=== PATIENT | female | born 1980 | race Caucasian/White ===

== ENCOUNTER → 2020-06-01 09:18 | Outpatient (CLI) | payer OTHER, SELFPAY ==
--- NOTE | 2020-06-01 09:57 | BI_ITS ---
MAMMOGRAPHY - BILATERAL SCREENING REASON FOR EXAM: Female, 40 years old. Routine annual screening examination. PERTINENT HISTORY: Grandmother with breast cancer. Aunt with breast cancer. Bilateral breast implants. TECHNIQUE: Digital bilateral breast carol (3D mammographic acquisition) in the CC and MLO projections. 2-D mediolateral oblique (MLO) and craniocaudad (CC) views of both breasts were obtained. CAD: Full Field Digital Mammography with Computer Added Detection was performed. COMPARISON: Comparison is made with prior study dated 05/02/2017. FINDINGS: Breast Composition: The breasts are extremely dense, which lowers the sensitivity of mammography. There are no dominant masses or suspicious calcifications. There is a 1 cm well-defined nodule in the axillary region of the right breast as seen on the MLO view. Correlation with ultrasound is recommended. No other significant abnormalities are identified. BI/SCREEN MAMM (CAD) W/CAROL BILAT IMPRESSION: 1 cm well-defined nodule in the axillary region of the right breast as described. Correlation with ultrasound is recommended. ASSESSMENT CATEGORY: BIRADS Category 0: Incomplete. Need additional imaging evaluation. A letter regarding these results will be sent to the patient by the facility within 30 days. Approximately 10% of breast cancers are not detected by mammography. A normal mammogram should not delay biopsy of a clinically suspicious abnormality. [id number] Electronically Signed: Miquel Polanco, at 10:52 EST , Service support ,
[2020-06-01 10:09] LABS: ALB/GLOB Ratio 1.3 RATIO (0.9-2.4); AST(SGOT) 17 U/L (15-37); Alanine Aminotransfer ALT/SGPT 21 U/L (13-56); Albumin, Serum 4.1 g/dL (3.2-5.0); Alkaline Phosphatase 59 U/L (45-117); BUN 11 mg/dL (7-18); BUN/Creat Ratio 13.3 RATIO (10-20); Calcium,Total 8.8 mg/dL (8.5-10.1); Chloride 106 mmol/L (98-107); Cholesterol 216 mg/dL (200); Creatinine, Serum 0.83 mg/dL (0.55-1.02); EST Glomerular Filtration Rate 81 mL/min (>60); Est Glom Filt Rate - Afr Amer 98 mL/min (>60); Globulin 3.1 g/dL (2.2-4.2); Glucose 82 mg/dL (74-106); Potassium 3.8 mmol/L (3.5-5.1); Protein, Total 7.2 g/dL (6.4-8.2); Sodium Level 139 mmol/L (136-145); Triglycerides 46 mg/dL
[2020-06-01 10:10] LABS: Anion Gap 3 (5-15); High Density Lipoprotein 94 mg/dL; Very Low Density Lipoprotein 9 mg/dL (5-40)
== END ==
PROVIDERS: PCP Family Medicine; Referring Provider Family Medicine; Visit Provider Family Medicine
DX: Z12.31 Encounter for screening mammogram for malignant neoplasm of breast (principal); N63.10 Unspecified lump in the right breast, unspecified quadrant; Z13.1 Encounter for screening for diabetes mellitus; Z13.220 Encounter for screening for lipoid disorders
CPT/HCPCS: 36415; 77063; 77067; 80053; 80061

== ENCOUNTER → 2020-06-02 10:16 | Outpatient (CLI) | payer OTHER, SELFPAY ==
--- NOTE | 2020-06-02 10:54 | US_ITS ---
STUDY: ULTRASOUND BREAST - RIGHT REASON FOR EXAM: Female, 40 years old. Abnormal screening mammogram. TECHNIQUE: Axial and longitudinal images of the RIGHT breast were performed with a high resolution ultrasound transducer. # OF IMAGES: 38 COMPARISON: Comparison is made with prior mammogram dated 06/01/2020. FINDINGS: RIGHT Breast: The upper half of the right breast was examined by ultrasound. No sonographic abnormality is seen. There is evidence of a breast implant. US/Breast Limited Unilateral IMPRESSION: No sonographic abnormality is seen. Additional mammographic views will be obtained. ASSESSMENT CATEGORY: BIRADS Category 0: Incomplete. Need additional imaging evaluation. A letter regarding these results will be sent to the patient by the facility within 30 days. Electronically Signed: Miquel Polanco, at 11:59 EST , Service support ,
--- NOTE | 2020-06-02 11:17 | BI_ITS ---
MAMMOGRAPHY - UNILATERAL DIAGNOSTIC: RIGHT BREAST REASON FOR EXAM: Female, 40 years old. Abnormal screening mammogram. PERTINENT HISTORY: Grandmother with breast cancer. TECHNIQUE: Compression spot views of the right were obtained in the MLO and craniocaudad projections. CAD: Full Field Digital Mammography with Computer Added Detection was performed. COMPARISON: Comparison is made with prior mammogram dated 06/01/2020 and prior ultrasound of the right breast dated 06/02/2020. FINDINGS: Breast Composition: The breasts are extremely dense, which lowers the sensitivity of mammography. The previously seen questionable axillary nodule is not seen at the time and most likely represents superimposition of breast tissue. No other significant abnormalities are identified. BI/DIAG MAMM W/CAD, UNILAT IMPRESSION: Stable unilateral diagnostic mammogram. One year follow-up mammogram recommended. (A) ASSESSMENT CATEGORY: BIRADS Category 2: Benign. A letter regarding these results will be sent to the patient by the facility within 30 days. Approximately 10% of breast cancers are not detected by mammography. A normal mammogram should not delay biopsy of a clinically suspicious abnormality. Electronically Signed: Miquel Polanco, at 13:44 EST , Service support ,
== END ==
PROVIDERS: PCP Family Medicine; Referring Provider Family Medicine; Visit Provider Family Medicine
DX: R92.8 Other abnormal and inconclusive findings on diagnostic imaging of breast (principal)
CPT/HCPCS: 76642; 77065

== ENCOUNTER → 2020-06-20 | Outpatient (CLI) | payer OTHER, SELFPAY ==
--- NOTE | 2020-06-20 | IMM_PTH ---
PATIENT: CHAY MUSTAFA LOC: [facility] U#:[id number] AGE/SX: 40/F ROOM: RE06/20/[address]: Dr. Harry Collier MD : 1980 BED: DIS: 06/20/2020 SPEC #: [id number] RECD: 06/21/20 12:55 STATUS: AUDREY REQ #: [id number] CAROLYN: 06/20/20 00:[address]: Harry Collier DEPT: IMMUNOHISTOCHEMISTRY RECD BY: Sylvia Arredondo ENTERED: 06/21/20 12:56 SP TYPE: IMMUNO OTHR DR: Beronica Hebert PA-C Tissues: A - Uterine cervix, NOS B - Endocervical Procedures: p16 (initial) KI-67 (add) PHYSICIAN & INSTITUTION [facility] [id number] SPECIMEN INFORMATION: Tissue Source: A - Cervix, B - Endocervix Clinical Info: ASCUS, ? HGSIL Specimen Number: [id number] A & B CPT code: 53288 x2, 53443 x2 METHODOLOGY: Deparaffinized sections of prefer/formalin-fixed tissue or PAP/DQ stained slides are incubated with monoclonal/polyclonal antibodies/oligonucleotide probes. Localization is made via biotin free immunoperoxidase method. Appropriate controls are performed and reacted as expected. Results on target cell population are indicated in the following table: RESULTS: ANTIBODY / CLONE RESULT Block A P16 (E6H4) positive, focal, patchy Ki-67 (30-9) positive, moderate Block B P16 (E6H4) positive, focal, patchy Ki-67 (30-9) negative These tests were developed and their performance characteristics determined by [facility]. They may not have been cleared or approved by the U.S. Food and Drug Administration. The FDA has determined that such clearance or approval is not necessary. The above immunohistochemical/dualISH markers are ordered and reviewed by the Pathologist. INTERPRETATION: A. Cervix, biopsy: Consistent with focal HPV change/mild squamous dysplasia. B. Endocervix, curettings: Consistent with focal HPV change/mild squamous dysplasia. AM:jerman 06/22/20
--- NOTE | 2020-06-20 10:00 | CER_PTH ---
PATIENT: CHAY MUSTAFA LOC: [facility] U#:[id number] AGE/SX: 40/F ROOM: RE06/20/[address]: Dr. Harry Collier MD : 1980 BED: DIS: 06/20/2020 SPEC #: [id number] RECD: 06/20/20 11:34 STATUS: AUDREY REMarija #: [id number] CAROLYN: 06/20/20 10:[address]: Harry Collier DEPT: SURGICAL PATHOLOGY RECD BY: Nicky Jules ENTERED: 06/20/20 12:53 SP TYPE: CERV OTHR DR: Beronica Hebert PA-C Tissues: A - Uterine cervix, NOS B - Endocervical Procedures: Surgery Specimen Level IV HEADER OPERATION: Colposcopy PRE-OP DIAGNOSIS: ASCUS; cannot rule out HGSIL TISSUE SUBMITTED: A - Cervical biopsy, B - ECC MICROSCOPIC DIAGNOSIS A. Cervix, biopsy: Focal mild squamous dysplasia (LSIL). See comment. B. Endocervix, curettings: Focal mild squamous dysplasia (LSIL). Scant strips of benign superficial endocervix. See comment. AM:jerman 06/21/20 COMMENT A & B. Results from immunohistochemistry ([id number]) for surrogate HPV marker (p16) will be reported separately. Case has been reviewed in consultation with Dr. Mustafa who concurs with the above diagnosis. IDC:SJ MICROSCOPIC DESCRIPTION Slides are reviewed. GROSS DESCRIPTION A - Received in fixative is one container labeled with the patient's name and designated cervical. The specimen consists of multiple irregular fragments of light murphy soft tissue that in aggregate measure 1 x 0.5 x 0.1 cm. The specimen is totally submitted in one cassette. B - Received in fixative is one container labeled with the patient's name and designated endocervical. The specimen consists of multiple minute fragments of light murphy soft tissue that in aggregate measure 2 x 1 x <0.1 cm. The specimen is totally submitted in one cassette. / AM:jerman 06/20/20 TC:0 CPT: 76286 x2
== END | disposition home or self-care (01) ==
LOC: LABSPEC 10:55
PROVIDERS: PCP Family Medicine; Visit Provider Obstetrics & Gynecology
DX: R87.610 Atypical squamous cells of undetermined significance on cytologic smear of cervix (ASC-US) (principal)
CPT/HCPCS: 88305; 88341; 88342

== ENCOUNTER 2020-08-17 08:05 | Day surgery (SDC) | payer OTHER, SELFPAY ==
--- NOTE | 2020-08-16 21:27 | PCM.HPOB.BLA ---
History and Physical Surgical History and Physical Name: LARISA MUSTAFA Age: 40 Date of : 1980 Larisa Mustafa, a 40 year old female 3 0 0 0 3, presents for LEEP on August 17, 2020 at 9:15. -- Larisa is here as a referral from Soha Hebert for ASCUS pap, cannot rule out HGSIL, +HPV. She has prior ASCUS pap and Colpo with she believes to be LGSIL result. She is having LEEP. MEDICATIONS HISTORY: ALLERGIES: No Known Drug Allergies Infections - Chicken pox and shingles Illnesses - none Accidents - no injuries of consequence Hospitalizations - see surgery Review of Systems: GENERAL - Denies fever, or chills SKIN - Denies skin changes EYES - Denies visual changes EARS - Denies difficulty hearing NOSE - Denies nasal congestion or bleeding MOUTH - Denies sore throat or difficulty swallowing NECK - Denies pain or swelling RESPIRATORY - Denies shortness of breath or wheezing CARDIOVASCULAR - Denies palpitations or chest pain GASTROINTESTINAL - Denies nausea, vomiting, diarrhea, constipation GENITOURINARY - Denies dysuria, frequency of urination, incontinence of urine MUSCULOSKELETAL - Denies joint or muscle pain NEUROLOGICAL - Denies localized numbness or weakness PSYCHIATRIC - Denies depression or anxiety ENDOCRINE - Denies heat or cold intolerance, weight loss or gain HEMATO-IMMUNOLOGIC - Denies excessive bleeding with cuts SOCIAL HISTORY: Alcohol Use - socially Smoking - denies smoking Diet - no special diet Lifestyle - moderate stress lifestyle and Exercise - regular 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 Description - [employer] Illicit Drug Use - denies use of street drugs Sexual Activity - Hours Worked - 15 Spouse-Sig Other Name - Singh Spouse-Sig Other Occupation - Self- as above Children Name(s) - Asuncion Brianne Obie Control - Vasectomy FAMILY HISTORY: MENSTRUAL HISTORY: LMP Known?- Approximate-Month KnownAmount/Duration - 5 days, Regularity - Regular, LMP - 07/17/20, Age Onset Menarche - 13 PAST PREGNANCIES: Total Pregnancies - 3; Full Term Pregnancies - 3; Premature - 0; Abortions, Induced - 0; Abortions, Spontaneous - 0; Ectopics - 0; Multiple Births - 0; Living Children - 3 SURGICAL HISTORY: 2009 Breast Augmentation ; - PHYSICAL EXAM BP- 94/58 Sitting, Right arm, regular cuff Temp- 98.4 Taken Orally Weight- 120.68443 lbs Height- 66.6 inch BMI:19.06 CONSTITUTIONAL - NAD, well nourished, and well developed SKIN - No rash, lesions, or ulcers HEENT - Normocephalic, PERRLA, EOMI NECK - No nodes, no nuchal rigidity and thyroid normal size and texture LYMPH NODES - Palpation of lymph nodes in neck and groins within normal limits LUNGS - CTA x2 without wheezes, crackles or rales CARDIAC - Regular rate and rhythm without rubs, murmurs, or gallops ABDOMEN - Without hepatosplenomegaly, distention, masses, rebound, or guarding; normal bowel sounds; no hernias EXTREMITIES - No edema or calf tenderness NEUROLOGICAL - Cranial nerves II-XII grossly intact PSYCHIATRIC - A and O to time, place, person, mood and affect External Genital Vagina - non-tender without lesions Urethra/Urethral Meatus - non-tender Bladder - non-tender Vagina - vaginal booker are pink and moist without loss of rugae and no evidence of atrophy Cervix - without cervical motion tenderness and has normal size and features without evident lesions Uterus - 5-6 cm in size, mobile and nontender Adnexa - clear without masses or tenderness ASSESSMENT/PLAN: 1. Mild Cervical Dysplasia Pt referral from [facility]. ASCUS Cannot rule out high grade, HPV pos. Pt with hx of ASCUS but never HPV pos Educated on results including extensive conversation about HPV. Suggest vaccination pt undecided but seems likely to decline Colposcopy with PEDRO I, ECC with PEDRO I For LEEP procedure Educated pt on procedure r/b/a. All questions answered and consent was signed Educated on HPV, physical activity, hot tubs
[2020-08-17] VITALS (8 sets, daily range): BP systolic 101–114; BP diastolic 66–79; PULSE 53–72; RESP 14–16; TEMP 36.1–37.3; O2SAT 100; BMI 19.2
--- NOTE | 2020-08-17 | IMM_PTH ---
PATIENT: CHAY MUSTAFA [place] [facility] [place][id number] AGE/SX: 40/F ROOM: RE08/17/[address]: Dr. Harry Collier MD : 1980 BED: DIS: 08/17/2020 SPEC #: [id number] RECD: 08/21/20 12:29 STATUS: AUDREY REQ #: [id number] CAROLYN: 08/17/20 00:[address]: Harry Collier DEPT: IMMUNOHISTOCHEMISTRY RECD BY: Sylvia Arredondo ENTERED: 08/21/20 12:30 SP TYPE: IMMUNO OTHR DR: Beronica Hebert PA-C Tissues: A - Uterine cervix, NOS Procedures: p16 (initial) KI-67 (add) PHYSICIAN & INSTITUTION [place] [id number] SPECIMEN INFORMATION: Tissue Source: A - Ectocervix Clinical Info: Mild cervical dysplasia Specimen Number: [id number] CPT code: 57935, 51386 METHODOLOGY: Deparaffinized sections of prefer/formalin-fixed tissue or PAP/DQ stained slides are incubated with monoclonal/polyclonal antibodies/oligonucleotide probes. Localization is made via biotin free immunoperoxidase method. Appropriate controls are performed and reacted as expected. Results on target cell population are indicated in the following table: RESULTS: ANTIBODY / CLONE RESULT Block A P16 (E6H4) positive, focal block staining Ki-67 (30-9) positive, moderate These tests were developed and their performance characteristics determined by [facility]. They may not have been cleared or approved by the U.S. Food and Drug Administration. The FDA has determined that such clearance or approval is not necessary. The above immunohistochemical/dualISH markers are ordered and reviewed by the Pathologist. INTERPRETATION: A. Ectocervix: Focal moderate squamous dysplasia. SKY:jerman 08/22/2020
[2020-08-17 08:39] LABS: Internal QC Validated? YES +Cl - CLEAR BKGD; Pregnancy, Urine Negative Negative
--- NOTE | 2020-08-17 09:30 | CONE_PTH ---
PATIENT: CHAY MUSTAFA [place]: [facility] [place][id number] AGE/SX: 40/F ROOM: RE08/17/[address]: Dr. Harry Collier MD : 1980 BED: DIS: 08/17/2020 SPEC #: [id number] RECD: 08/17/20 12:25 STATUS: AUDREY JETT #: [id number] CAROLYN: 08/17/20 09:[address]: Harry Collier DEPT: SURGICAL PATHOLOGY RECD BY: Yomaira Brown ENTERED: 08/18/20 11:54 SP TYPE: Leep Cone BHASKAR DR: Beronica Hebert PA-C Tissues: A - UTERINE CERVIX LEEP B - UTERINE CERVIX LEEP Procedures: Surgery Specimen Level V HEADER OPERATION: LEEP cone PRE-OP DIAGNOSIS: Mild cervical dysplasia TISSUE SUBMITTED: A - Ectocervix, B - Endocervix MICROSCOPIC DIAGNOSIS A. 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 Mild chronic inflammation. See comment. B. Endocervix, LEEP conization: Acute and chronic inflammation. Negative for dysplasia. SJ:rg 08/21/2020 COMMENT A. Dysplastic changes are noted in the detached fragment of the epithelium. Inked resection margins of all three fragments are free of dysplastic changes. Immunohistochemistry ([id number]) for surrogate HPV marker (p16) supports the above diagnosis. Please make reference to previous specimen ([id number]) Cervix, biopsy and endocervix, curettings with diagnosis of focal mild squamous dysplasia. MICROSCOPIC DESCRIPTION Slides are reviewed. GROSS DESCRIPTION A - Received in fixative is one container labeled with the patient's name and designated ectocervix. The specimen consists of three irregular fragments of pink-murphy soft tissue ranging in size from 0.8 to 2.5 cm. No distinct mass lesions are identified. The fragments are inked, serially sectioned and totally submitted in three cassettes. B - Received in fixative is one container labeled with the patient's name and designated endocervix. The specimen consists of multiple irregular fragments of pink-murphy soft tissue measuring in aggregate 1.5 x 1 x 0.2 cm. The specimen is totally submitted in one cassette. / KELECHI:jerman 08/18/20 TC:5 CPT: 14637 x2
--- NOTE | 2020-08-17 10:39 | OP.PCM_ITS ---
Report of Operation Date of Procedure: 08/17/20 Pre-Operative Diagnosis: ASCUS cannot rule out high-grade, PEDRO-1 Post-Operative Diagnosis: ASCUS cannot rule out high-grade, PEDRO-1 Surgery/Procedure Performed:: Conization LEEP Description of Surgical Findings:: Surgeon: Harry Collier MD Anesthesia: MAC EBL: 25 cc Urine output: Not measured IV fluids: 600 cc Complications: None Specimen: Ectocervix and endocervix Findings: Lugol's solution applied to ectocervix. No new pathology found. Loop electrosurgical excision procedure performed on ectocervix. Endocervical sampling with LEEP done separately. Sturmdorf sutures and Monsel's were queenie lied. Good hemostasis noted. Consent: Patient with ASCUS cannot rule out high-grade and PEDRO-1 on colposcopy of endocervix and ectocervix. Patient need a LEEP procedure. Patient understands the risk of the procedure include but are not limited to visceral vascular injury, prolonged hospitalization, blood loss need for transfusion, reoperation. Patient states understanding wish to proceed. All questions consent was signed. Seizure: Patient was brought back to the OR where MAC anesthesia was found be adequate. Patient was prepared and draped in dorsolithotomy position with yellowfin stirr ups. Weighted speculum is placed in the posterior aspect of vagina and above findings were noted with Lugol's solution. Using cauterized LEEP ectocervical sampling was performed. Repeat sampling of endocervix with LEEP electrocautery was performed. Sample sent separately. Using rollerball and Sturmdorf suture good hemostasis was noted. Monsel's was placed. Good hemostasis was noted. All counts correct x2. Patient tolerated the procedure well was brought to recovery in stable condition.
--- NOTE | 2020-08-17 10:46 | DCINST_ITS ---
Discharge Diet: No Restrictions Discharge Activity: Return to Normal Activity, May Drive, May Shower, - - No tub baths for 2 weeks May resume sexual activity in: 6 weeks Weight Bearing Status: Weight bearing as tolerated Call your doctor if your incision/area has: Foul Smelling Discharge Call your doctor if you observe: Fever of 101 or Higher, Shortness of breath, Chest pain Allergies/Adverse Reactions: Allergies No Known Allergies Allergy (Verified 08/10/20 14:25) Medications to take at Discharge Oxycodone [Oxyir] 5 mg PO Q6H PRN PRN 3 Days #12 tablet 08/17/20 The following prescriptions were given: Oxycodone [Oxyir] 5 mg PO Q6H PRN PRN 3 Days #12 tablet PRN Reason: Pain Score 6-10 Transmission Status: Sent to [facility] Primary Care Physician: Beronica Hebert PA-C [Primary Care Provider] - Test Results: Test results from this visit will be discussed in further detail at your follow- up appointment, if applicable. Please Follow Up With: Harry Collier MD When: 2 weeks
== END 2020-08-17 13:44 | disposition home or self-care (01) ==
LOC: SDC 08:06 → AC 08:06
PROVIDERS: Anesthesiology; PCP Family Medicine; Referring Provider Obstetrics & Gynecology; Visit Provider Obstetrics & Gynecology
PROC: 0UBC7ZZ Excision of Cervix, Via Natural or Artificial Opening (ICD-10-PCS; CPT 57522; principal; 2020-08-17 09:15)
DX: N87.1 Moderate cervical dysplasia (principal); Z20.822 Contact with and (suspected) exposure to COVID-19
CPT/HCPCS: 00940; 57522; 81025; 87426; 88307; 88341; 88342; C9803; J7120; J2405

== ENCOUNTER → 2020-12-21 15:59 | Outpatient (CLI) | payer OTHER, SELFPAY ==
[2020-08-17 08:36] VITALS: BMI 19.2
[2020-12-21 16:12] VITALS: BP 99/60; PULSE 72; RESP 16; TEMP 37; O2SAT 100; BMI 19.3
[2020-12-21] MEDS: Penicillin G Benzathine 2.4 MU/4 ML Syringe IM (16:21)
== END ==
PROVIDERS: PCP Family Medicine; Referring Provider Internal Medicine; Visit Provider Internal Medicine
DX: Z20.2 Contact with and (suspected) exposure to infections with a predominantly sexual mode of transmission (principal)
CPT/HCPCS: 96372

== ENCOUNTER → 2021-03-26 | Outpatient (CLI) | payer OTHER, SELFPAY ==
[2021-03-29 20:56] LABS: HPV APTIMA, High Risk Negative (Negative)
== END | disposition home or self-care (01) ==
LOC: LABSPEC 14:22
PROVIDERS: PCP Family Medicine; Visit Provider Obstetrics & Gynecology
DX: N87.0 Mild cervical dysplasia (principal)
CPT/HCPCS: 87624; 88175; G0145

== ENCOUNTER → 2021-06-26 14:02 | Outpatient (CLI) | payer BC, SELFPAY ==
--- NOTE | 2021-06-26 14:06 | BI_ITS ---
MAMMOGRAPHY - BILATERAL SCREENING REASON FOR EXAM: Female, 41 years old. Routine annual screening examination. PERTINENT HISTORY: Grandmother with breast cancer. Aunt with breast cancer. Bilateral breast implants. TECHNIQUE: Digital bilateral breast carol (3D mammographic acquisition) in the CC and MLO projections. 2-D mediolateral oblique (MLO) and craniocaudad (CC) views of both breasts were obtained. CAD: Full Field Digital Mammography with Computer Added Detection was performed. COMPARISON: Comparison is made with prior study in 06/01/2020 and 05/02/2017. FINDINGS: Breast Composition: The breasts are extremely dense, which lowers the sensitivity of mammography. There are no dominant masses or suspicious calcifications. Stable appearance of the bilateral breast implants. No other significant abnormalities are identified. There has been no significant change since the prior study. BI/SCRN MAMM (CAD)W/CAROL BILAT IMPRESSION: Stable bilateral screening mammogram. Yearly follow-up mammogram recommended. (A) ASSESSMENT CATEGORY: BIRADS Category 2: Benign. A letter regarding these results will be sent to the patient by the facility within 30 days. Approximately 10% of breast cancers are not detected by mammography. A normal mammogram should not delay biopsy of a clinically suspicious abnormality. [id number] Electronically Signed: Miquel Polanco MD at 14:57 EST , Service support ,
== END ==
PROVIDERS: PCP Family Medicine; Visit Provider Obstetrics & Gynecology
DX: Z12.31 Encounter for screening mammogram for malignant neoplasm of breast (principal); Z80.3 Family history of malignant neoplasm of breast
CPT/HCPCS: 77063; 77067

== ENCOUNTER → 2022-03-26 | Outpatient (CLI) | payer BC, SELFPAY ==
[2022-04-01 18:08] LABS: HPV APTIMA, High Risk Negative (Negative)
== END | disposition home or self-care (01) ==
LOC: LABSPEC 16:38
PROVIDERS: PCP Family Medicine; Visit Provider Obstetrics & Gynecology
DX: Z12.4 Encounter for screening for malignant neoplasm of cervix (principal)
CPT/HCPCS: 87624; 88175; G0145

== ENCOUNTER → 2022-06-28 | Outpatient (CLI) | payer BC, SELFPAY ==
--- NOTE | 2022-06-28 12:14 | BI_ITS ---
MAMMOGRAPHY - BILATERAL SCREENING REASON FOR EXAM: Female, 42 years old. Routine annual screening examination. PERTINENT HISTORY: Grandmother with breast cancer. Aunt with breast cancer. TECHNIQUE: Digital bilateral breast carol (3D mammographic acquisition) in the CC and MLO projections. 2-D mediolateral oblique (MLO) and craniocaudad (CC) views of both breasts were obtained. CAD: Full Field Digital Mammography with Computer Added Detection was performed. COMPARISON: Comparison is made with prior study dated 06/26/2021 and 06/01/2020. FINDINGS: Breast Composition: The breasts are extremely dense, which lowers the sensitivity of mammography. There is a 1.3 cm x 1 cm well-defined nodule in the anterior upper lateral aspect of the right breast. Correlation with ultrasound is recommended. Stable appearance of the bilateral breast implants. No other significant abnormalities are identified. BI/SCRN MAMM (CAD)W/CAROL BILAT IMPRESSION: 1.3 cm x 1 cm well-defined nodule in the anterior upper lateral aspect of the right breast. Correlation with ultrasound is recommended. ASSESSMENT CATEGORY: BIRADS Category 0: Incomplete. Need additional imaging evaluation. A letter regarding these results will be sent to the patient by the facility within 30 days. Approximately 10% of breast cancers are not detected by mammography. A normal mammogram should not delay biopsy of a clinically suspicious abnormality. [id number] Electronically Signed: Miquel Polanco MD at 12:56 EST ,
== END | disposition home or self-care (01) ==
LOC: OPBI 12:12
PROVIDERS: PCP Family Medicine; Referring Provider Obstetrics & Gynecology; Visit Provider Obstetrics & Gynecology
DX: Z12.31 Encounter for screening mammogram for malignant neoplasm of breast (principal); N63.10 Unspecified lump in the right breast, unspecified quadrant; Z98.82 Breast implant status; Z80.3 Family history of malignant neoplasm of breast
CPT/HCPCS: 77063; 77067

== ENCOUNTER → 2022-07-04 | Outpatient (CLI) | payer BC, SELFPAY ==
--- NOTE | 2022-07-04 13:22 | US_ITS ---
STUDY: ULTRASOUND BREAST - RIGHT REASON FOR EXAM: Female, 42 years old. Abnormal screening mammogram. TECHNIQUE: Axial and longitudinal images of the RIGHT breast were performed with a high resolution ultrasound transducer. # OF IMAGES: 9 COMPARISON: Comparison is made with prior mammogram dated 06/28/2022 and prior sonogram of the right breast dated 06/02/2020. FINDINGS: RIGHT Breast: The mammographic abnormality corresponds to a 6 mm x 9 mm x 4 mm cyst at the 11 o''clock position of the breast at 3 cm from the nipple. US/Breast Limited Unilateral IMPRESSION: 6 mm x 9 mm x 4 mm cyst at the 11 o''clock position of the breast at 3 cm from the nipple. ASSESSMENT CATEGORY: BIRADS Category 2: Benign. A letter regarding these results will be sent to the patient by the facility within 30 days. Electronically Signed: Miquel Polanco MD at 14:10 EST ,
== END | disposition home or self-care (01) ==
LOC: OPUS 13:20
PROVIDERS: PCP Family Medicine; Referring Provider Obstetrics & Gynecology; Visit Provider Obstetrics & Gynecology
DX: R92.8 Other abnormal and inconclusive findings on diagnostic imaging of breast (principal); N60.09 Solitary cyst of unspecified breast
CPT/HCPCS: 76642

== ENCOUNTER → 2023-03-27 | Outpatient (CLI) | payer BC, SELFPAY ==
[2023-04-01 15:08] LABS: HPV APTIMA, High Risk Negative (Negative)
== END | disposition home or self-care (01) ==
LOC: OPBI 15:19
PROVIDERS: PCP Family Medicine; Referring Provider Obstetrics & Gynecology; Visit Provider Obstetrics & Gynecology
DX: Z12.4 Encounter for screening for malignant neoplasm of cervix (principal)
CPT/HCPCS: 87624; 88175; G0145

== ENCOUNTER → 2023-08-28 | Outpatient (CLI) | payer BC, SELFPAY ==
--- NOTE | 2023-08-28 12:08 | BI_ITS ---
MAMMOGRAPHY - BILATERAL SCREENING REASON FOR EXAM: Female, 43 years old. Routine annual screening examination. PERTINENT HISTORY: Grandmother with breast cancer. Once with breast cancer. Bilateral breast implants. TECHNIQUE: Digital bilateral breast carol (3D mammographic acquisition) in the CC and MLO projections. 2-D mediolateral oblique (MLO) and craniocaudad (CC) views of both breasts were obtained. CAD: Full Field Digital Mammography with Computer Added Detection was performed. COMPARISON: Comparison is made with prior study dated June 28, 2022 and June 26, 2021. FINDINGS: Breast Composition: The breasts are extremely dense, which lowers the sensitivity of mammography. Stable 1.3 cm x 1 cm well-defined nodule in the anterior upper lateral aspect of the right breast. Prior sonogram demonstrated this to be a cyst. Stable appearance of the bilateral breasts. No other significant abnormalities are identified. There has been no significant change since the prior study. BI/SCRN MAMM (CAD)W/CAROL BILAT IMPRESSION: Stable bilateral screening mammogram. Yearly follow-up mammogram recommended. (A) ASSESSMENT CATEGORY: BIRADS Category 2: Benign. A letter regarding these results will be sent to the patient by the facility within 30 days. Approximately 10% of breast cancers are not detected by mammography. A normal mammogram should not delay biopsy of a clinically suspicious abnormality. [id number] Electronically Signed: Miquel Polanco MD at 8:16 EST ,
--- OUTSIDE RECORDS SUMMARY | 2023-08-28 18:17 | XMS RPT_ITS | CCD ---
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 Name Role Phone EDWIN LEW Unavailable Unavailable IMCA Unavailable Unavailable IMCA Unavailable Unavailable EDWIN LEW Unavailable Unavailable VANDA LENNON Unavailable Unavailable Fast DO, Quyen A Unavailable Manchak LAND PLANNER, Yue Unavailable Unavailable Unavailable Unavailable Gravius LAND PLANNER, Jie Unavailable Unavailable Allergies Allergy Classification Reported Allergen(s) Allergy Type Date of Onset Reaction(s) Facility (2 sources) Bee; Translations: [BEES] Propensity to adverse reactions (disorder) 1 [facility] Repository Medications Completed/Discontinued Medications Medication Drug Class(es) Dates Sig (Normalized) Sig (Original) doxycycline hyclate 100 mg oral capsule (4 sources) Tetracycline-class Drug Start: 12-18-2020 take 1 capsule by mouth twice daily Doxycycline Hyclate 100 MG Oral Capsule 1 (one) Capsule bid for 0 days Quantity: 28 {Capsule} Refills: 0 Ordered: 18-Dec-2020 Fast DO, Quyen A Fast DO, Quyen A Start : 18-Dec-2020 Active penicillin g potassium [id number] unt/ml injectable solution (5 sources) Penicillin-class Antibacterial Start: 11-08-2020 inject 2.5 mL by intramuscular injection once Penicillin G Potassium [id number] UNIT Injection Solution Reconstituted 2.5 Milliliter one time injection IM for 0 days Quantity: 2.5 {Milliliter} Refills: 0 Ordered: 08-Nov-2020 Fast DO, Quyen A Fast DO, Quyen A Start : 08-Nov-2020 Active Comments: Lot#: [id number]: Route:IM Site given:right gluteal Given By: Kailyn signed Problems Active Problems Problem Classification Problem Date Documented Date Episodic/Chronic Immunizations and screening for infectious disease (6 sources) Exposure to sexually transmissible disorder; Translations: [STD exposure] 11-08-2020 Episodic Nonmalignant breast conditions (2 sources) Diffuse cystic mastopathy of unspecified breast; Translations: [Diffuse cystic mastopathy of unspecified breast] Onset: 08-04-2017 Chronic Unclassified (1 source) Unknown / UNK(Unknown) Onset: 08-04-2017 Past or Other Problems Problem Classification Problem Date Documented Da te Episodic/Chronic Nonmalignant breast conditions (1 source) Mastodynia; Translations: [Mastodynia] Onset: 08-04-2017 Episodic Unclassified (12 sources) STD exposure Unclassified (1 source) Unclassified (1 source) Encounter for screening for COVID-19 Results Test Name Value Interpretation Reference Range Facil ity Vital Signs Date Time Vital Sign Value Performing Clinician Facility 11-08-2020 11:43-0400 Body height 167.64 cm Quyen Fast DO Work Phone: [facility] Work Phone: 11-08-2020 11:43-0400 Body mass index (BMI) [Ratio] 19.37 kg/m2 Quyen Fast DO Work Phone: [facility] Work Phone: 11-08-2020 11:43-0400 Body surface area Derived from formula 1.61 m2 Quyen Fast DO Work Phone: [facility] Work Phone: 11-08-2020 11:43-0400 Body temperature 97.3 [degF] Quyen Fast DO Work Phone: [facility] Work Phone: Encounters Encounter Date Encounter Type Care Provider Facility Start: 01-26-2021 End: 01-26-2021 Office outpatient visit 5 minutes Queyn Fast DO Work Phone: [facility] Start: 12-21-2020 End: 12-21-2020 Phone Encounter Quyen Fast DO Work Phone: [facility] Start: 12-18-2020 End: 12-18-2020 Office outpatient visit 5 minutes Quyen Fast DO Work Phone: [facility] Start: 11-08-2020 End: 11-09-2020 Office outpatient visit 5 minutes Quyen Fast DO Work Phone: [facility] Start: 08-04-2017 End: 08-04-2017 Ambulatory EDWIN LEW Facility:[facility] Plan of Treatment Date Care Activity Detail Author Start: 12-21-2020 Syphilis test non-treponemal antibody qual RPR (RAPID PLASMA REAGIN) (55132) [facility] Work Phone: Payers Date Payer Category Payer Policy ID Unknown [id number] Unknown [facility] Summary Purpose Family History No Family History Records FoundNo Family History Records FoundNo Family History Records FoundNo Family History Records Found Advance Directives No Advanced Directives Records FoundNo Advanced Directives Records FoundNo Advanced Directives Records FoundNo Advanced Directives Records Found Additional Source Comments INFORMATION SOURCE (unrecogn ized section and content) DATE CREATED AUTHOR AUTHOR'S ORGANIZ ATION 01/05/2018 [facility] DATE CREATED AUTHOR AUTHOR'S ORGANIZ ATION 01/06/2018 [facility] DATE CREATED AUTHOR AUTHOR'S ORGANIZ ATION 05/19/2020 [facility] FOR RECORDS PERTAINING TO PATIENTS WHO ARE OR HAVE BEEN ENROLLED IN A CHEMICAL DEPENDENCY/SUBSTANCEABUSE PROGRAM, SOME INFORMATION MAY BE OMITTED. This clinical summary was aggregated from multiple sources. Caution should be exercised in using it in the provision of clinical care. This summary normalizes information from multiple sources, and as a consequence, information in this document may materially change the coding, format and clinical context of patient data. In addition, data may be omitted in some cases. CLINICAL DECISIONS SHOULD BE BASED ON THE PRIMARY CLINICAL RECORDS. [employer] provides no warranty or guarantee of the accuracy or completeness of information in this document.
== END | disposition home or self-care (01) ==
LOC: OPBI 12:07
PROVIDERS: PCP Family Medicine; Referring Provider Family Medicine; Visit Provider Family Medicine
DX: Z12.31 Encounter for screening mammogram for malignant neoplasm of breast (principal)
CPT/HCPCS: 77063; 77067